=== PATIENT | male | born 1955 | race Caucasian/White ===

== ENCOUNTER 2017-02-15 09:14 | Day surgery (SDC) | payer OTHER ==
[2017-02-15] VITALS (9 sets, daily range): BP systolic 121–150; BP diastolic 85–98; PULSE 70–98; RESP 11–19; O2SAT 92–97
[~2017-02-15] VITALS: Ht 175.3 cm; Wt 80.7 kg
[~2017-02-15 09:14] MED LIST: ASPI-973 PO; Bupivacaine Liposome 1.3% 20 mL Inj INFILTRATE ONE; CeFAZolin Inj 2 GM in IV Premix 1 EACH IV ONE; LISI10TA PO; Lactated Ringer's 1,000 ML IV SCH; NAPR220C11 PO; OMEP20CA11 PO
[2017-02-15] MEDS ORDERED: Ondansetron 2 mg/mL 2 mL Inj ONE (09:15)
[2017-02-15] MEDS ORDERED: Dexamethasone 4 mg/mL Inj ONE (09:15)
[2017-02-15] MEDS ORDERED: Propofol 10,000 mCg/mL 20 mL Inj ONE (09:15)
[2017-02-15] MEDS ORDERED: HYDROmorphone 2 mg/mL Inj ONE (09:15)
[2017-02-15] MEDS ORDERED: MetoCLOpramide 5 mg/mL 2 mL Inj ONE (09:15)
[2017-02-15] MEDS ORDERED: fentaNYL-PF 50 mCg/mL 2 mL Inj ONE (09:15)
[2017-02-15] MEDS ORDERED: Vancomycin 1,000mg/200 mL NS IV ONE (09:48)
[2017-02-15] MEDS ORDERED: Lactated Ringer's 1,000 ML IV ONE ×2 (10:24→14:35)
[2017-02-15] MEDS: Vancomycin Inj 1,250 MG in 0.9% Sodium Chloride 250 ML IV ONE ×2 (10:24→11:40)
[2017-02-15] MEDS ORDERED: Bupivacaine Liposome 1.3% 20 mL Inj ONE (13:49)
[2017-02-15] MEDS ORDERED: Tranexamic Acid 100 mg/mL 10 mL Inj ONE (13:51)
[2017-02-15] MEDS ORDERED: Lactated Ringer's 1,000 ML IV SCH (13:52)
[2017-02-15] MEDS ORDERED: 0.9% Sodium Chloride 100 ML ONE (13:52)
[2017-02-15] MEDS ORDERED: Lactated Ringer's 500 ML IV PRN (13:52)
--- NOTE | 2017-02-15 13:52 | PCM.HPANE ---
Patient Data Surgeon Admitting Provider: Attending Provider:Devonte Arias MD Primary Care Physician:Francis Maria MD Other Provider:Jj Hoskins Anesthesia Reason for Visit Left Knee Arthritis Ht/WT & BMI Height (Feet): 5 Height (Inches): 9 Weight (Kilograms): 84.09 Body Mass Index 27.00 Allergies Coded Allergies: Bumble Bee (Verified Allergy, Severe, Shortness of Breath, 11/24/15) bacitracin (Verified Allergy, Unknown, rash, 11/24/15) hydrogen peroxide (Verified Allergy, Unknown, reddness, 11/24/15) Uncoded Allergies: NEOSPORIN (Allergy, Unknown, rash, 11/22/15) Past Anesthesia History Anesthesia History: Denies:: Abnormal Airway, Anesthesia Reactions, Difficult Intubation, Fam Anesthesia Reaction, Fam Malignant Hypertherm, Malignant Hyperthermia Diabetes History Hx Diabetes?: No MRSA MRSA: No Medications Blood Thinner: Aspirin Hypertension Medication: Yes Home Meds Incl Beta Venecia: No Reported Medications Omeprazole 20 Mg Capsule.dr20 Mg PO DAILY Ref 0 02/13/17 Lisinopril 10 Mg [id number] Mg PO DAILY 30 Days Ref 0 02/13/17 Aspirin 81 Mg Olkxbr19 Mg PO DAILY Ref 0 02/13/17 Naproxen Sodium (Aleve)220 Mg [id number] Mg PO DAILY PRN For Pain 02/13/17 Discontinued Reported Medications Epinephrine (Epipen 2-Vishal)0.3 Mg/0.3 Ml Auto.injct0.3 Mg IJ 11/22/16 Lisinopril 10 Mg Ayhbzs61 Mg PO DAILY 30 Days Ref 0 11/22/16 Aspirin 81 Mg Fktzpx09 Mg PO DAILY Ref 0 11/24/15 Omeprazole 20 Mg Capsule.dr20 Mg PO DAILY PRN For Indigestion Ref 0 11/22/15 History History of ENT Problems?: No HEENT History: Denies:: Abnormal Airway Cataracts Difficult Intubation Dysphagia Hearing Problem Sinus Problem TMJ Hx of Heart Problems?: Yes Cardiovascular History: Positive for:: Hypertension Denies:: AICD Atrial Fibrillation Cardiac Surgery Congestive Heart Failure Heart Murmur Irregular Heartbeat (hx of bradycardia post anes. ) Pacemaker Rheumatic Fever Thrombophlebitis Valvular Heart Disease Hx of Respiratory Problem?: No Respiratory History: Denies:: Asthma COPD Dyspnea Oxygen Administration Pneumonia Pulmonary Embolism Tuberculosis Use of C-PAP Machine Neurological History: Denies:: Alzheimer's Disease CVA Dementia Dizziness Headaches Multiple Sclerosis Parkinson's Disease Seizures Hx of GI Problems?: No Gastrointestinal History: Positive for:: Gastroesphageal Reflux Denies:: Cirrhosis Diverticulitis Gastrointestinal Bleeding Heartburn Hepatitis Hiatal Hernia Rectal Bleeding Hx of Problems?: No Genitourinary History: Denies:: Kidney Stones Urinary Tract Infection Male Hx: Denies:: Prostate Problems Scrotal Mass Testicular Surgery Skin History: Denies:: History Skin Disorders? Pressure Ulcers Hx Musculoskeletal Problems?: Yes Musculoskeletal History: Positive for:: Back Injury (2 surgeries L4-L5 1978, 1981) Musculoskeletal Trauma (left knee current admission problem) Osteoarthritis Denies:: Fibromyalgia Joint Replacement Hx of Psycho/Social Problems?: No Psycho Social History: Denies:: Anxiety Hx Depression Hx Surgeries?: Yes (back surgery and appendix removal, multi right arm surgery ) Hx Any Other Health Problems?: Yes Other History: Denies:: Cancer Hospitalization Thyroid Disease History Blood Transfusions: Denies:: Blood Transfuse Reaction Blood Transfusions Hx Diabetes: No Hx Alcohol Use: YesAlcoholic Drinks Per Day: one drink dailyHx Substance Use: No Smoking Status: Never Smoker Have You Smoked inLast 12 mo: No Stop/Bang S-Snoring: Do You Snore Loudly: No T-Tired: feel tired, fatigued: No O-Obsered: Observed not breath: No P-Blood Pressure: treated: Yes B- Body Mass Index > 35 kg/m2: No A- Age over 50: Yes N- Neck Large Circumference: No G- Gender Male: Yes PEGGY Total Score: 3 Risk Assessment Category Category 1A: Patient has history of documented sleep apnea, and HAS NOT received any narcotic, sedative or anesthesia administration during this stay. Category 1B: Patient has history of documented sleep apnea, and HAS received any narcotic , sedative or anesthesia administration during this stay Category 2: Patient has SUSPECTED Obstructive Sleep Apnea, and HAS received any narcotic , sedative or anesthesia administration during this stay. Category 3: Patient has SUSPECTED Obstructive Sleep Apnea and HAS NOT received narcotic, sedative or anesthesia administration during this stay. Category 4: Outpatient in Procedural Areas with known sleep apnea or who screen positive for High Risk via the STOP/BANG questionnaire. Exam Exam General Appearance: Alert, Oriented X3, Cooperative, No Acute Distress HEENT/AIRWAY: MP 2 Lungs: Clear to Auscultation Heart: Exam Unremarkable Plan Impression Patient chart reviewed, patient interviewed and anesthestic plan with risks, benefits, and alternatives discussed, and informed consent obtained. NPO Status: 8PM ASA Physical Status: ASA2 Mod Systemic Disease Anesthetic Plan: GA Bene/Risks/Altern/Consents: Yes HP Complete Prior to Induction: Yes Merlin Sierra MD Feb 15, 2017 08:58
[2017-02-15] MEDS ORDERED: HYDROmorphone 1 mg/mL Inj IVPUSH PRN (13:55)
[2017-02-15] MEDS ORDERED: MetoCLOpramide 5 mg/mL 2 mL Inj IVPUSH PRN (13:55)
[2017-02-15] MEDS ORDERED: EPHEDrine Sulfate 50 mg/mL Inj IVPUSH PRN (13:55)
[2017-02-15] MEDS ORDERED: Dexamethasone 4 mg/mL Inj IVPUSH PRN (13:55)
[2017-02-15] MEDS ORDERED: Ondansetron 2 mg/mL 2 mL Inj IVPUSH PRN (13:55)
[2017-02-15] MEDS ORDERED: Phenylephrine 10,000 mCg/mL Inj IVPUSH PRN (13:55)
[2017-02-15] MEDS ORDERED: fentaNYL-PF 50 mCg/mL 2 mL Inj IVPUSH PRN (13:55)
[2017-02-15] MEDS ORDERED: Gentamicin 40 mg/mL 2 mL Inj IRRIGATION ONE (14:00)
[2017-02-15] MEDS ORDERED: Tranexamic Acid 100 mg/mL 10 mL Inj IV ONE ×2 (14:20→14:40)
[2017-02-15] MEDS ORDERED: Bupivacaine-MPF 0.25%/EPI 30 mL Inj INJ ONE (15:05)
--- NOTE | 2017-02-15 16:53 | PCM.ANEP1 ---
Post Anesthesia Phase 1 PACU Phase 1 Assessment Vital Signs Vital Signs Date Time Temp Pulse Resp B/P Pulse Ox O2 Delivery O2 Flow Rate FiO2 02/15/17 16:28 36.1 74 11 137/96 92 Room Air 02/15/17 16:25 75 17 150/94 93 Room Air 02/15/17 16:15 36.1 78 19 130/85 93 Room Air 02/15/17 16:00 77 16 121/87 96 Room Air 02/15/17 15:45 79 15 134/92 95 Room Air 02/15/17 15:40 98 11 134/92 97 Room Air 02/15/17 15:37 36.3 73 142/98 Room Air 02/15/17 09:51 35.5 70 16 145/95 96 Room Air Anesthetic Administered: GA Level of Alertness: Awake, talking MORROW's with Equal Strength: Yes Pain: No Nausea or Vomiting: No Oxygen Delivery: Room Air Lungs: Clear to Auscultation Dermatome Level: Full Sensation Merlin Sierra MD Feb 15, 2017 16:53
--- NOTE | 2017-02-15 16:53 | PCM.ANEP2 ---
Post Anesthesia Evaluation ASA/CMS Post Anesthesia VS in Patient's Normal Range?: Yes Resp Stable; Airway Patent?: Yes CV Function & Hydration Stable: Yes Mental Status Recovered?: Yes Pain control Satisfactory?: Yes N/V Control Satisfactory?: Yes Merlin Sierra MD Feb 15, 2017 16:53
--- NOTE | 2017-02-15 17:04 | DRSVH ---
PROCEDURE: X-RAY LEFT KNEE, ONE OR TWO VIEWS ([id number]) INDICATIONS: POST OP KNEE ALIGNMENT TECHNIQUE: 2 view(s) of the knee acquired. COMPARISON: None. FINDINGS: Bones: Patient is status post knee joint arthroplasty. Hardware components are in expected position s. Visualized bony structures are intact. Soft tissues: Overlying postoperative changes are noted. IMPRESSION: Expected appearance status post placement of medial left knee unicondylar arthroplasty. Dictated by: [facility] Interpreted: Maite Bowser MD on 02/15/2017 at 17:02 Transcribed by: YESENIA on 02/15/2017 at 17:02 Approved by: Maite Bowser MD, PhD on 02/16/2017 at 17:01
[2017-02-15] MEDS ORDERED: oxyCODONE-Acetamin 5-325 mg Tablet PO ONE (17:35)
--- NOTE | 2017-02-16 02:51 | OP ---
[address] [address] OPERATIVE REPORT PATIENT: KYLE MOREJON : 1955 MR#: [id number] ADMIT: 02/15/2017 JOB ID: [id number] DATE OF SURGERY: 02/15/2017 PREOPERATIVE DIAGNOSIS(ES): Severe medial compartment osteoarthritis, left knee. POSTOPERATIVE DIAGNOSIS(ES): Severe medial compartment osteoarthritis, left knee. PROCEDURE: Unicompartmental knee arthroplasty and anterior prepatellar bursectomy. SURGEON: Devonte Arias MD. IT SYSTEMS ANALYST CONSULTANT: Floresita Law PA-C. Assembler Chassis required due to the major complexity of the operation. INDICATIONS: This man has had severe progressive disability associated with advanced medial compartment osteoarthritis. He elects for unicompartmental knee arthroplasty. He understands and accepts the potential for risks and complications, which includes, but is not limited to, infection, thromboembolic, neurovascular events, as well as a potential for progressive arthritis in unresurfaced compartments. Understanding these, he wishes to proceed. PROCEDURE: The patient was prepped and draped in usual sterile fashion. An anteromedial approach was made to the knee. Dissection was carried down and a medial arthrotomy was performed. The bursa was noted to have present inflammatory fluid and significant fibrous bands within the bursa. A careful tedious bursectomy was performed, removing all this potentially inflammatory tissue. The frontal bossing was removed from the tibia. A patellar osteophyte was removed. The alignment apparatus was assembled and a proximal tibial cut was made. The tibial cut was completed with the sagittal saw and the bone fragment had been removed. A 9 spacer block was placed in the knee and the distal femoral cut was made after fixation bone fragment removed. Distal femur sized to a #6. Provisional chamfer cutting block, drill holes and chamfer cuts were made. The tibia was sized to a G component fixed. Drill holes were made. Trial reduction was performed. A 9 mm polyethylene was chosen, which provided excellent soft tissue tension, tracking and alignment. All meniscal tissue and osteophytes were carefully removed from the knee. Pressurized lavage was followed by pressurized cementation of the components. Excess cement was removed during the curing process. The final construct was assembled and the final polyethylene was snapped securely into place. The wounds were further irrigated with sterile irrigant. The tourniquet was let down. Hemostasis achieved. Deep closure with #2 Quill. Wounds then lavaged with diluted Betadine. Following this, 2-0 Vicryl, 3-0, and a 4-0 intracuticular stitch was utilized. Patient taken to the recovery room in stable condition. He tolerated the procedure well. There were no complications.
== END 2017-02-15 23:59 | disposition home or self-care (01) ==
LOC: SAS 09:14
PROVIDERS: ATTEND Orthopaedic Surgery
DX: M17.12 Unilateral primary osteoarthritis, left knee (principal); I10 Essential (primary) hypertension; J32.0 Chronic maxillary sinusitis; Z79.82 Long term (current) use of aspirin
CPT/HCPCS: 27446; 73560; C1713; C1776; J0690; J1100; J1170; J1580; J1885; J2270; J2405; J2765; J3010; J3370; J7050; J7120